=== PATIENT | female | born 1935 | race Caucasian/White ===

== ENCOUNTER → 2021-08-17 | Outpatient (CLI) | payer MEDICARE ==
[~2021-08-17] MED LIST: CALCIUM 500+D1 EACH PO; CITRACAL + BON1 EACH PO; ECOTRIN81 MG PO; FISH OIL 1,0001 EACH PO; FLAXSEED1000 MG PO; IPRAT-ALBUT 0.5-3 ML NEB; KETOROLAC TROME10 MG PO; NORVASC 5 MG TAB5 MG PO; SYMBICORT 16010.2 GM INH; TRAMADOL HCL50 MG PO; VENTOLIN HFA 66.7 GM INH; VITAMIN D32000 UNI1 PO
== END ==
LOC: KOH-I 08-15 15:30
DX: S22.000A Wedge compression fracture of unspecified thoracic vertebra, initial encounter for closed fracture (principal); M54.89 Other dorsalgia; M51.15 Intervertebral disc disorders with radiculopathy, thoracolumbar region; M51.35 Other intervertebral disc degeneration, thoracolumbar region; R91.8 Other nonspecific abnormal finding of lung field
CPT/HCPCS: 72128

== ENCOUNTER 2021-08-23 11:46 | Inpatient (IN) | payer MEDICARE ==
[~2021-08-23] VITALS: Ht 165.1 cm; Wt 56.7 kg
[~2021-08-23 11:46] MED LIST changes: -CALCIUM 500+D1 EACH PO; -FLAXSEED1000 MG PO; -KETOROLAC TROME10 MG PO; -TRAMADOL HCL50 MG PO
[2021-08-23 12:44] LABS: HEMOGLOBIN 14.7 gm/dl (12.3-15.3); RED BLOOD COUNT 4.91 M/UL (4.00-5.10); WHITE BLOOD COUNT 13.9 K/UL (4.5-11.0)
[2021-08-23] MEDS ORDERED: KETOROLAC TROME10 MG PO (15:16)
[2021-08-23] MEDS ORDERED: TRAMADOL HCL50 MG PO (15:16)
[2021-08-23] MEDS ORDERED: FLAXSEED1000 MG PO (16:21)
[2021-08-23] MEDS ORDERED: CALCIUM 500+D1 EACH PO (20:19)
[2021-08-24 04:27] LABS: HEMOGLOBIN 12.8 gm/dl (12.3-15.3); RED BLOOD COUNT 4.33 M/UL (4.00-5.10); WHITE BLOOD COUNT 13.3 K/UL (4.5-11.0)
[2021-08-25 02:57] LABS: RED BLOOD COUNT 4.45 M/UL (4.00-5.10); WHITE BLOOD COUNT 10.6 K/UL (4.5-11.0)
[2021-08-26 04:10] LABS: HEMOGLOBIN 13.5 gm/dl (12.3-15.3); RED BLOOD COUNT 4.54 M/UL (4.00-5.10); WHITE BLOOD COUNT 11.8 K/UL (4.5-11.0)
[2021-08-27 01:13] LABS: HEMOGLOBIN 12.7 gm/dl (12.3-15.3); RED BLOOD COUNT 4.26 M/UL (4.00-5.10)
[2021-08-28 03:48] LABS: HEMOGLOBIN 13.5 gm/dl (12.3-15.3); RED BLOOD COUNT 4.52 M/UL (4.00-5.10); WHITE BLOOD COUNT 12.7 K/UL (4.5-11.0)
--- NOTE | 2021-08-28 10:40 | NUR ---
clarified orders for biopsy and stopping heparin and received order from dr. templeton radiologist per dr. taylor's advised
--- NOTE | 2021-08-29 03:10 | NUR ---
noted order for TLSO BACK BRACE ON 08/25/21. I HAVE BEEN TOLD THOSE HAVE TO BE ORDERED THROUGH [facility] [phone]. I WILL GIVE THIS NUMBER TO [employer] AND SEE IF IT HAS BEEN ORDERED ALREADY.
[2021-08-29 05:34] LABS: HEMOGLOBIN 14.5 gm/dl (12.3-15.3); RED BLOOD COUNT 4.9 M/UL (4.00-5.10); WHITE BLOOD COUNT 13.8 K/UL (4.5-11.0)
--- NOTE | 2021-08-29 12:37 | NUR ---
trying to clarify medications r/t eliquis and heparin and stated will call me back.
[2021-08-30 05:31] LABS: HEMOGLOBIN 12.7 gm/dl (12.3-15.3); WHITE BLOOD COUNT 10.7 K/UL (4.5-11.0)
[2021-08-30 05:34] LABS: RED BLOOD COUNT 4.32 M/UL (4.00-5.10)
[2021-08-30] MEDS ORDERED: LASIX20 MG PO (10:38)
[2021-08-30] MEDS ORDERED: ELIQUIS 5 MG TAB5 MG PO (10:38)
[2021-08-30] MEDS ORDERED: LEVOFLOXACIN500 MG PO (10:52)
== END 2021-08-30 17:59 | disposition home health service (06) | DRG 542 ==
LOC: ER1 11:46 → CDU 13:15 → M/S 13:15
PROVIDERS: Emergency Medicine; Internal Medicine; Physician Assistant Medical; ADMIT Internal Medicine
PROC: 0BBC3ZX Excision of Right Upper Lung Lobe, Percutaneous Approach, Diagnostic (ICD-10-PCS; principal; 2021-08-29)
DX: M48.56XA Collapsed vertebra, not elsewhere classified, lumbar region, initial encounter for fracture (principal); I26.99 Other pulmonary embolism without acute cor pulmonale; C34.11 Malignant neoplasm of upper lobe, right bronchus or lung; N39.0 Urinary tract infection, site not specified; M48.55XA Collapsed vertebra, not elsewhere classified, thoracolumbar region, initial encounter for fracture; K21.9 Gastro-esophageal reflux disease without esophagitis; E87.6 Hypokalemia; Z20.822 Contact with and (suspected) exposure to COVID-19; Z79.01 Long term (current) use of anticoagulants; I10 Essential (primary) hypertension; Z90.710 Acquired absence of both cervix and uterus; Z88.0 Allergy status to penicillin; Z82.3 Family history of stroke; Z80.3 Family history of malignant neoplasm of breast; Z98.890 Other specified postprocedural states; Z79.82 Long term (current) use of aspirin; Z79.899 Other long term (current) drug therapy
CPT/HCPCS: 36415; 36600; 70450; 71045; 71270; 80048; 80053; 81001; 82550; 82553; 82803; 83735; 83874; 83880; 84484; 85025; 85027; 85610; 85730; 87077; 87086; 87186; 93005; 96374; 99285; C9113; J0360; J1644; J1940; J2185; J2270; Q9967; U0002

== ENCOUNTER → 2021-08-23 | Outpatient (CLI) | payer MEDICARE | LOC: CT 08:29 | DX: R91.8 Other nonspecific abnormal finding of lung field (principal); I26.99 Other pulmonary embolism without acute cor pulmonale | CPT/HCPCS: 71270; Q9967 ==

== ENCOUNTER 2021-10-24 09:25 | Emergency (ER) | payer MEDICARE ==
[~2021-10-24 09:25] MED LIST changes: +CALCIUM 500+D1 EACH PO; +ELIQUIS 5 MG TAB5 MG PO; +FLAXSEED1000 MG PO; +KETOROLAC TROME10 MG PO; +LASIX20 MG PO; +LEVOFLOXACIN500 MG PO; +TRAMADOL HCL50 MG PO
[2021-10-24 10:15] LABS: RED BLOOD COUNT 4.59 M/UL (4.00-5.10); WHITE BLOOD COUNT 8.2 K/UL (4.5-11.0)
[2021-10-24 10:50] LABS: BUN/CREATININE RATIO 14 (0-10)
== END 2021-10-24 13:30 | disposition home or self-care (01) ==
LOC: ER1 09:25
PROVIDERS: Emergency Medicine
DX: R42 Dizziness and giddiness (principal); Z90.710 Acquired absence of both cervix and uterus; Z88.0 Allergy status to penicillin; Z88.1 Allergy status to other antibiotic agents
CPT/HCPCS: 70450; 70496; 70498; 71045; 80053; 81001; 82550; 82553; 83874; 84484; 85025; 93005; 99285; Q9967